=== PATIENT | female | born 1980 | race African-American/Black ===

== ENCOUNTER 2018-07-11 13:46 | Emergency (ER) | payer SELFPAY ==
--- NOTE | 2018-07-11 15:03 | EDM.PDOC ---
ED HPI GENERAL MEDICAL PROBLEM - General Chief Complaint: ENT Problem Stated Complaint: EAR Time Seen by Provider: 07/11/18 14:35 Source of Information: Reports: Patient History Limitations: Reports: No Limitations - History of Present Illness INITIAL COMMENTS - FREE TEXT/NARRATIVE: HISTORY AND PHYSICAL: History of present illness: Patient is a 37-year-old female who presents to the emergency room with complaints of left ear pain. She states she has seen her primary care provider in 2-3 times over the past several months due to this pain. She was diagnosed with an external ear infection. She states she has been using the ear drops as prescribed and has not alleviated her pain. She states any gentle touch around the ear causes severe pain. Denies any drainage. Denies any fever, chills, chest pain, shortness of breath or cough. Denies any GI or symptoms. Needing and drinking appropriately. Review of systems: As per history of present illness and below otherwise all systems reviewed and negative. Past medical history: As per history of present illness and as reviewed below otherwise noncontributory. Surgical history: As per history of present illness and as reviewed below otherwise noncontributory. Social history: See social history for further information Family history: As per history of present illness and as reviewed below otherwise noncontributory. Physical exam: General: Well-developed and well-nourished 37-year-old -[place] female. Alert and oriented. Nontoxic appearing and in no acute distress. HEENT: Atraumatic, normocephalic, pupils equal and reactive bilaterally, negative for conjunctival pallor or scleral icterus, mucous membranes moist, TMs normal bilaterally, throat clear, neck supple, nontender, trachea midline. No drooling or trismus noted. No TMJ or temporal pain. Mild mastoid tenderness to left ear. No meningeal signs. No hot potato voice noted. Lungs: Clear to auscultation, breath sounds equal bilaterally, chest nontender. Heart: S1S2, regular rate and rhythm without overt murmur Abdomen: Soft, nondistended, nontender. Negative for masses. Pelvis: Stable nontender. Genitourinary: Deferred. Rectal: Deferred. Skin: Intact, warm, dry. No lesions or rashes noted. Extremities: Atraumatic, moves all per self. Neurovascular unremarkable. Neuro: Awake, alert, oriented. Cranial nerves II through XII unremarkable. Cerebellum unremarkable. Motor and sensory unremarkable throughout. Exam nonfocal. Notes: Upon entering the room the patient has oversized headphones on covering both ears. During the physical examination even gentle touching she states is severe she is agreeable to imaging. Requesting something for pain at this time. CT shows no acute findings. She states she does have the external ear drops available to her and is here more for pain management. We'll give her Medrol Dosepak and diclofenac. Patient does have a history of HTN and takes medications for this; she is unconcerned of her elevated BP readings today and will follow up with her PCP. Does not want further evaluation of this. States its due to her pain. Supportive care measures were reviewed and discussed. Voices understanding and is agreeable to plan of care. Denies any further questions or concerns at this time. Diagnostics: CBC, CMP, Maxillofacial bone CT Therapeutics: Toradol, Solu-Medrol Prescription: Medrol Dosepak, diclofenac Impression: Otalgia, left Plan: 1. Continue using the eardrops that you have available to you for the external ear infection. 2. Take the medications that were prescribed to today as directed and as discussed. 3. Follow-up with the early interventionist and/or your primary care provider. Return to the ED as needed and as discussed. Definitive disposition and diagnosis as appropriate pending reevaluation and review of above. Left Ear Pain Score (Numeric/FACES): 10 - Related Data Allergies Allergy/AdvReac Type Severity Reaction Status Date / Time No Known Allergies Allergy Verified 07/11/18 14:19 Home Meds: Home Meds amLODIPine Besylate [Amlodipine Besylate] 5 mg PO DAILY 07/11/18 [History] Past Medical History Cardiovascular History: Reports: Hypertension [employer] History: Reports: - Infectious Disease History Infectious Disease History: Reports: Chicken Pox - Past Surgical History Female Surgical History: Reports: Section Social & Family History - Family History Family Medical History: Noncontributory Cardiac: Reports: Hypertension - Tobacco Use Smoking Status *Q: Never Smoker - Caffeine Use Caffeine Use: Reports: None - Recreational Drug Use Recreational Drug Use: No ED ROS ENT - Review of Systems Review Of Systems: ROS reveals no pertinent complaints other than HPI. ED EXAM, ENT - Physical Exam Exam: See Below (See dictation) Course - Vital Signs Last Recorded V/S: Last Vital Signs Temp 98.6 F 07/11/18 14:17 Pulse 93 07/11/18 14:17 Resp 16 07/11/18 14:17 BP 228/110 H 07/11/18 14:17 Pulse Ox 99 07/11/18 14:17 - Orders/Labs/Meds Labs: Laboratory Tests 07/11/18 07/11/18 Range/Units 15:11 15:11 WBC 8.85 (4.0-11.0) K/uL RBC 4.72 (4.30-5.90) M/uL Hgb 12.3 (12.0-16.0) g/dL Hct 37.4 (36.0-46.0) % MCV 79.2 L (80.0-98.0) fL MCH 26.1 L (27.0-32.0) pg MCHC 32.9 (31.0-37.0) g/dL RDW Std Deviation 46.4 (28.0-62.0) fl RDW Coeff of Sumi 16 H (11.0-15.0) % Plt Count 417 H (150-400) K/uL MPV 8.20 (7.40-12.00) fL Neut % (Auto) 66.5 (48.0-80.0) % Lymph % (Auto) 26.0 (16.0-40.0) % [place] % (Auto) 4.1 (0.0-15.0) % Eos % (Auto) 3.3 (0.0-7.0) % Baso % (Auto) 0.1 (0.0-1.5) % Neut # (Auto) 5.9 H (1.4-5.7) K/uL Lymph # (Auto) 2.3 (0.6-2.4) K/uL [place] # (Auto) 0.4 (0.0-0.8) K/uL Eos # (Auto) 0.3 (0.0-0.7) K/uL Baso # (Auto) 0.0 (0.0-0.1) K/uL Nucleated RBC % 0.0 /100WBC Nucleated RBCs # 0 K/uL Sodium 140 (136-145) mmol/L Potassium 4.2 (3.5-5.1) mmol/L Chloride 106 (98-107) mmol/L Carbon Dioxide 25.3 (21.0-32.0) mmol/L BUN 14 (7.0-18.0) mg/dL Creatinine 0.8 (0.6-1.0) mg/dL Est Cr Clr Drug Dosing 80.42 mL/min Estimated GFR (MDRD) > 60.0 ml/min Glucose 91 (74-106) mg/dL Calcium 9.1 (8.5-10.1) mg/dL Total Bilirubin 0.2 (0.2-1.0) mg/dL AST 26 (15-37) IU/L ALT 36 (14-63) IU/L Alkaline Phosphatase 89 (46-116) U/L Total Protein 7.7 (6.4-8.2) g/dL Albumin 3.4 (3.4-5.0) g/dL Globulin 4.3 H (2.6-4.0) g/dL Albumin/Globulin Ratio 0.8 L (0.9-1.6) Meds: Medications Discontinued Medications Generic Name Dose Route Start Last Admin Trade Name Freq PRN Reason Stop Dose Admin Ketorolac Tromethamine 30 mg 07/11/18 15:06 07/11/18 15:14 Toradol IVPUSH 07/11/18 15:07 30 mg ONETIME ONE Administration Methylprednisolone Sodium Succinate 125 mg 07/11/18 15:15 07/11/18 16:13 Solu-Medrol IVPUSH 07/11/18 15:16 125 mg ONETIME ONE Administration Departure - Departure Time of Disposition: 16:35 Disposition: Home, Self-Care 01 Clinical Impression: Otalgia of left ear - Discharge Information Referrals: PCP,Unknown [Primary Care Provider] - Forms: ED Department Discharge Additional Instructions: The following information is given to patients seen in the emergency department who are being discharged to home. This information is to outline your options for follow-up care. We provide all patients seen in our emergency department with a follow-up referral. The need for follow-up, as well as the timing and circumstances, are variable depending upon the specifics of your emergency department visit. If you don't have a primary care physician on staff, we will provide you with a referral. We always advise you to contact your personal physician following an emergency department visit to inform them of the circumstance of the visit and for follow-up with them and/or the need for any referrals to a consulting specialist. The emergency department will also refer you to a specialist when appropriate. This referral assures that you have the opportunity for follow-up care with a specialist. All of these measure are taken in an effort to provide you with optimal care, which includes your follow-up. Under all circumstances we always encourage you to contact your private physician who remains a resource for coordinating your care. When calling for follow-up care, please make the office aware that this follow-up is from your recent emergency room visit. If for any reason you are refused follow-up, please contact the [facility] Emergency Department at and asked to speak to the emergency department charge nurse. [facility] [address] [place] [id number] [id number] 1. Continue using the eardrops that you have available to you for the external ear infection. 2. Take the medications that were prescribed to today as directed and as discussed. 3. Follow-up with the early interventionist and/or your primary care provider. Return to the ED as needed and as discussed.
[2018-07-11] MEDS ORDERED: Ketorolac 30 MG/ML SDV IVPUSH ONE (15:06)
[2018-07-11] MEDS ORDERED: methylPREDNISolone Sodium Succinate 125 MG/2 ML SDV IVPUSH ONE (15:15)
[2018-07-11 16:19] LABS: CHLORIDE,CL 106 mmol/L (98-107); SODIUM,NA 140 mmol/L (136-145)
--- NOTE | 2018-07-11 16:27 | CT ---
EXAMINATION: CT IAC HISTORY: Left mastoid tenderness COMPARISON: None TECHNIQUE: Axial CT imaging obtained through the temporal bones without contrast. Coronal and sagittal reconstructions obtained. FINDINGS: Both the left and right external auditory canals appear patent. The middle ears are also clear bilaterally. The ossicles appear normal. The mastoid air cells are clear. No bony destruction. There is an abscess of the external cortex along the mid anterior aspect of the right mastoid air cells, likely postsurgical in nature. Semicircular canals and cochlea appear normal bilaterally. Vestibular ocular ducts are normal. IACs are grossly clear. No focal soft tissue swelling. Remaining osseous structures appear normal. Orbits and globes are symmetric. Visualized paranasal sinuses are essentially clear. IMPRESSION: 1. No acute findings noted within the mastoid air cells and middle ears bilaterally.
== END 2018-07-11 16:49 | disposition home or self-care (01) ==
LOC: MW.ED 13:46
DX: H92.02 Otalgia, left ear (principal); I10 Essential (primary) hypertension
CPT/HCPCS: 36415; 70480; 80053; 85025; 96374; 96375; 99283; J1885; J2930